=== PATIENT | female | born 1945 | race Caucasian/White ===

== ENCOUNTER → 2016-07-27 | Outpatient (CLI) | payer MEDICARE ==
[~2016-07-27] MED LIST: CALC-545 PO; CHOL500014 PO; DIGO125T PO; METO25TA35 PO; MULT-516 PO; OMNIPAQUE 350 MG/ML, 150 ML BOTTLE ONE; SOTA80TA PO; SOTA80TA18 PO; WARF5TAB7 PO; WARF6TAB PO
== END | disposition home or self-care (01) ==
LOC: CFH 12:24
PROVIDERS: ATTEND Internal Medicine Cardiovascular Disease
DX: I48.91 Unspecified atrial fibrillation (principal)
CPT/HCPCS: 71020; 75572; Q9967

== ENCOUNTER → 2016-07-27 | Outpatient (CLI) | payer MEDICARE ==
[~2016-07-27] MED LIST changes: -OMNIPAQUE 350 MG/ML, 150 ML BOTTLE ONE; +SOTA120T14 PO
== END ==
LOC: STAR 12:27
PROVIDERS: ATTEND Internal Medicine Cardiovascular Disease
DX: Z02.9 Encounter for administrative examinations, unspecified (principal)

== ENCOUNTER 2016-07-30 06:22 | Inpatient (IN) | payer MEDICARE ==
[2016-07-27 14:03] VITALS: BP 116/86
[2016-07-27 14:54] LABS: ASPARTATE AMINO TRANSFERASE 37 U/L (15-37); BLOOD UREA NITROGEN 16 mg/dL (7-18)
[~2016-07-30] VITALS: Ht 162.6 cm; Wt 61.7 kg
[~2016-07-30 06:22] MED LIST changes: -SOTA120T14 PO
[2016-07-30] MEDS ORDERED: SODIUM CHLORIDE 0.9% 1,000 ML IV SCH ×2 (06:52→07:00)
[2016-07-30] MEDS ORDERED: ONDANSETRON 2MG/ML, 2ML ONE (07:47)
[2016-07-30] MEDS ORDERED: PROPOFOL 10 MG/ML, 20ML ONE (07:47)
[2016-07-30] MEDS ORDERED: PHENYLEPHRINE 10 MG/ML ONE (07:47)
[2016-07-30] MEDS ORDERED: GLYCOPYRROLATE 0.2MG/1ML ONE (07:47)
[2016-07-30] MEDS ORDERED: NEOSTIGMINE 1 MG/ML, 10ML ONE (07:47)
[2016-07-30] MEDS ORDERED: ROCURONIUM 10 MG/ML ONE ×3 (07:47)
[2016-07-30] MEDS ORDERED: DEXAMETHASONE 4 MG/ML, 5ML ONE (07:47)
[2016-07-30] MEDS ORDERED: EPHEDRINE 50 MG/ML, 1ML ONE (07:47)
[2016-07-30] MEDS ORDERED: MIDAZOLAM 1 MG/ML, 5ML ONE (07:50)
[2016-07-30] MEDS ORDERED: FENTANYL PF 250 MCG/5ML ONE (07:50)
[2016-07-30] MEDS ORDERED: ISOPROTERENOL 0.2MG/ML, 5ML ONE (08:34)
[2016-07-30] MEDS ORDERED: HEPARIN 1,000 UNITS/ML, 10ML ONE ×2 (08:34→08:35)
[2016-07-30] MEDS ORDERED: ADENOSINE 6 MG/2 ML ONE (08:34)
[2016-07-30] MEDS ORDERED: LIDOCAINE 2%, 20ML ONE (08:35)
[2016-07-30] MEDS ORDERED: PROTAMINE SULFATE 10 MG/ML, 5ML ONE (10:53)
[2016-07-30] MEDS ORDERED: ACETAMINOPHEN 325 MG TABLET PO PRN ×2 (11:00→12:00)
[2016-07-30] MEDS ORDERED: ZOLPIDEM 5MG TABLET PO PRN (11:00)
[2016-07-30] MEDS ORDERED: OXYcodone 5 MG/5 ML ORAL.SOL UDC PO PRN (12:00)
[2016-07-30] MEDS ORDERED: FENTANYL PF 100 MCG/2ML IV PRN (12:00)
[2016-07-30] MEDS ORDERED: HYDROmorphone 1 MG/ML, 1ML IV PRN (12:00)
[2016-07-30] MEDS ORDERED: ALBUTEROL/IPRATROPIUM 2.5MG/0.5MG, 3 ML NPPB PRN (12:00)
[2016-07-30] MEDS ORDERED: ONDANSETRON 2MG/ML, 2ML IVPush PRN (12:00)
[2016-07-30] MEDS ORDERED: MIDAZOLAM 1 MG/ML, 2ML IV PRN (12:00)
[2016-07-30] MEDS ORDERED: LABETALOL 5MG/ML, 20ML IV PRN (12:00)
[2016-07-30] MEDS ORDERED: PROMETHAZINE 25 MG/ML, 1ML IV PRN (12:00)
[2016-07-30] MEDS ORDERED: MEPERIDINE/PF 25MG/0.5ML IVPush PRN (12:00)
[2016-07-30] MEDS ORDERED: hydrALAzine 20 MG/ML, 1ML IV PRN (12:00)
[2016-07-30] MEDS ORDERED: OXYcodone 5 MG/5 ML ORAL.SOL UDC ONE (12:04)
[2016-07-30] MEDS ORDERED: ACETAMINOPHEN 650 MG/20.3 ML UDC ONE (12:04)
[2016-07-30 13:54] VITALS: BP 130/81
[2016-07-30] MEDS: SOTALOL 120MG TABLET PO SCH (17:04)
[2016-07-30] MEDS ORDERED: WARFARIN 5 MG TABLET PO-COUM SCH (18:00)
[2016-07-30 18:53] VITALS: BP 126/80
[2016-07-30] MEDS ORDERED: METOPROLOL TARTRATE 25 MG TABLET PO SCH (21:00)
[2016-07-31 00:41] VITALS: BP 110/64
[2016-07-31] MEDS: SOTALOL 120MG TABLET PO SCH (05:16)
[2016-07-31 07:06] VITALS: BP 90/46
[2016-07-31] MEDS ORDERED: SOTA120T14 PO (08:28)
[2016-07-31] MEDS ORDERED: SOTALOL 80MG TABLET PO SCH (09:00)
[2016-07-31] MEDS ORDERED: MULTIVITAMIN 1 TABLET PO SCH (09:00)
[2016-07-31] MEDS ORDERED: [UNRECOGNIZED DRUG - REMARK] XX SCH (09:00)
[2016-07-31] MEDS ORDERED: CHOLECALCIFEROL 1,000 UNIT TABLET PO SCH (09:00)
[2016-07-31] MEDS ORDERED: CALCIUM/VITAMIN D3 250-125 TABLET PO SCH (09:00)
[2016-07-31 13:18] VITALS: BP 112/70
[2016-07-31] MEDS ORDERED: WARFARIN 3 MG TABLET PO-COUM SCH (18:00)
== END 2016-07-31 15:24 | disposition home or self-care (01) | DRG 274 ==
LOC: CACL 06:22 → ORIP 11:00 → 5SO 13:40
PROVIDERS: ADMIT Internal Medicine Cardiovascular Disease; ATTEND Internal Medicine Cardiovascular Disease
PROC: 02583ZZ Destruction of Conduction Mechanism, Percutaneous Approach (ICD-10-PCS; 2016-07-30)
PROC: 02K83ZZ Map Conduction Mechanism, Percutaneous Approach (ICD-10-PCS; 2016-07-30)
PROC: 4A0234Z Measurement of Cardiac Electrical Activity, Percutaneous Approach (ICD-10-PCS; 2016-07-30)
PROC: B24BZZ4 Ultrasonography of Heart with Aorta, Transesophageal (ICD-10-PCS; principal; 2016-07-30 08:00)
DX: I48.91 Unspecified atrial fibrillation (principal); I34.0 Nonrheumatic mitral (valve) insufficiency
CPT/HCPCS: 36415; 80053; 85025; 85347; 85610; 85730; 93005; 93308; 93312; 93321; 93325; 93613; 93656; 93662; C1732; C1766; C1893; C1894; J0153; J1100; J1644; J2250; J2405; J2704; J2710; J2720; J3010; J3490; C1730; C1759; J2370

== ENCOUNTER → 2019-07-30 | Outpatient (CLI) | payer MEDICARE ==
[~2019-07-30] MED LIST changes: -CHOL500014 PO; +CHOL500045 PO; -DIGO125T PO; +DIGO125T85 PO; +REGADENOSON 0.4 MG/5 ML SYRINGE ONE; +SOTA120T14 PO; +WARF-36 PO; -WARF5TAB7 PO
== END | disposition home or self-care (01) ==
LOC: CFH 12:08
PROVIDERS: ATTEND Internal Medicine Cardiovascular Disease
DX: I21.09 ST elevation (STEMI) myocardial infarction involving other coronary artery of anterior wall (principal); I25.9 Chronic ischemic heart disease, unspecified; I48.91 Unspecified atrial fibrillation
CPT/HCPCS: 78452; 93017; A9502; J2785